=== PATIENT | female | born 1960 | race Caucasian/White ===

== ENCOUNTER 2020-10-25 21:45 | Inpatient (IN) ==
[2020-10-25] MEDS ORDERED: SODIUM CHLORIDE 0.9% 1,000 ML IV STA (22:46)
[2020-10-25] MEDS ORDERED: LABETALOL 20 MG/4 ML SYRINGE IV STA ×3 (22:48→23:43)
[2020-10-25] MEDS ORDERED: PROMETHAZINE 25 MG/1 ML VIAL IM STA (23:15)
[2020-10-25] MEDS ORDERED: ONDANSETRON 4 MG/2 ML VIAL IV ONE (23:17)
[2020-10-25 23:22] LABS: Basophils # 0.1 10*3/uL (0.0-0.2); Basophils % 0.5 % (0.0-0.8); Eosinophils % 0.1 % (0.00-10.9); Hematocrit 43.3 VOL% (35.7-47.0); Hemoglobin 14.9 GM/DL (12.0-16.0); Immature Granulocytes % 0.4 %; Immature Granulocytes Absolute 0.04 #; Lymphocytes # 1.4 10*3/uL (1.4-4.0); Lymphocytes % 12.8 % (21.3-54.2); Mean Corpuscular HGB Conc 34.4 GM/DL (32-36); Mean Corpuscular Volume 91.4 FL (87-102); Mean Platelet Volume 10.2 FL (9.6-12.0); Monocytes % 5.5 % (1.7-12.7); Neutrophils % 80.7 % (38.7-73.9); Platelet Count 310 T/CUMM (130-400); Red Blood Count 4.74 MC/CUMM (3.8-5.5); Red Cell Distribution Width 11.4 % (9.3-17.3); White Blood Count 11.2 T/CUMM (4-12)
[2020-10-25 23:42] LABS: Albumin 3.8 G/DL (3.4-5.0); Bilirubin,Total 0.6 MG/DL (0.2-1.0); Osmolality,Calculated 276.8 MOS/KG (273-304); Potassium 3.9 MMOL/L (3.5-5.1); Total Protein 8.1 G/DL (6.4-8.3)
[2020-10-26] MEDS ORDERED: LORazepam 2 MG/1 ML VIAL IV STA (00:28)
[2020-10-26] MEDS ORDERED: ONDANSETRON 4 MG/2 ML VIAL IV STA (01:04)
[2020-10-26] MEDS ORDERED: hydrALAZINE 20 MG/1 ML VIAL IV STA (01:06)
[2020-10-26] MEDS ORDERED: [UNRECOGNIZED DRUG - OTHER] IV SCH (03:30)
[2020-10-26] MEDS ORDERED: ATROPINE IV SCH (03:30)
[2020-10-26] MEDS ORDERED: PROMETHAZINE IV SCH (03:30)
[2020-10-26] MEDS ORDERED: DIPHENHYDRAMINE IV SCH (03:30)
[2020-10-26] MEDS ORDERED: hydrALAZINE 20 MG/1 ML VIAL IV PRN (04:15)
[2020-10-26] MEDS ORDERED: DOCUSATE SODIUM 100 MG CAPSULE PO PRN (04:15)
[2020-10-26] MEDS ORDERED: DEXTROSE 50% 25 GM/50 ML VIAL IV PRN (04:15)
[2020-10-26] MEDS ORDERED: GLUCAGON 1 MG VIAL IM PRN (04:15)
[2020-10-26] MEDS ORDERED: ACETAMINOPHEN 325 MG TABLET PO PRN (04:15)
[2020-10-26] MEDS ORDERED: PANTOPRAZOLE 40 MG VIAL IV ONE (04:53)
[2020-10-26 05:53] LABS: Bacteria,Urine Occasional /HPF (Few); Bilirubin,Urine Negative (Negative); Blood, Urine Negative (Negative); Glucose,Urine (UA) Negative (Negative); Ketones,Urine Negative (Negative); Mucus,Urine Occasional /LPF (Occasional); Nitrite,Urine Negative (Negative); Protein,Urine 100 MG/DL; RBC,Urine 5 /HPF (0-4); Squamous Epithelial Cell,Urine Occasional /HPF (0-10); Urine Appearance CLEAR (Clear); Urine Color Yellow (Yellow); Urine Urobilinogen < 2.0 EU/DL (0.2-1.0); WBC,Urine 1 /HPF (0-6)
[2020-10-26] MEDS: SODIUM CHLORIDE 0.9% 1,000 ML IV SCH ×3 (05:58→15:12)
[2020-10-26 07:26] LABS: Basophils % 0.4 % (0.0-0.8); Eosinophils % 0.1 % (0.00-10.9); Hematocrit 35.9 VOL% (35.7-47.0); Hemoglobin 12.3 GM/DL (12.0-16.0); Immature Granulocytes % 0.3 %; Immature Granulocytes Absolute 0.03 #; Lymphocytes # 2.6 10*3/uL (1.4-4.0); Mean Corpuscular HGB Conc 34.3 GM/DL (32-36); Mean Corpuscular Volume 92.3 FL (87-102); Mean Platelet Volume 10.6 FL (9.6-12.0); Monocytes % 9.1 % (1.7-12.7); Neutrophils % 66.1 % (38.7-73.9); Platelet Count 263 T/CUMM (130-400); Red Blood Count 3.89 MC/CUMM (3.8-5.5); Red Cell Distribution Width 11.7 % (9.3-17.3); White Blood Count 10.6 T/CUMM (4-12)
[2020-10-26 07:52] LABS: Bilirubin,Total 0.5 MG/DL (0.2-1.0); Osmolality,Calculated 273.7 MOS/KG (273-304); Potassium 3.5 MMOL/L (3.5-5.1); Total Protein 6.3 G/DL (6.4-8.3)
[2020-10-26] MEDS: PROMETHAZINE INJ 25 MG in SODIUM CHLORIDE 0.9% 50 ML IV PRN ×2 (08:38→18:31)
[2020-10-26] MEDS: ONDANSETRON 4 MG/2 ML VIAL IV PRN (10:44)
[2020-10-26] MEDS: LISINOPRIL/HCTZ 20-25 MG TABLET PO SCH (12:39)
[2020-10-26] MEDS: METOPROLOL SUCCINATE XL 100 MG TABLET PO SCH (12:39)
[2020-10-26] MEDS: LACTOBACILLUS ACIDOPHILUS/BULGARICUS CAPLET PO SCH (12:39)
[2020-10-26] MEDS: ERYTHROMYCIN BASE 250 MG TABLET PO SCH ×2 (12:55→20:35)
[2020-10-26] MEDS ORDERED: ZALEPLON 5 MG CAPSULE PO PRN ×2 (20:31→21:13)
[2020-10-26] MEDS: QUEtiapine 100 MG TABLET PO SCH (21:50)
[2020-10-26] MEDS: PANTOPRAZOLE 40 MG VIAL IV SCH (21:51)
[2020-10-26] MEDS: ZOLPIDEM 5 MG TABLET PO PRN (21:51)
[2020-10-27] MEDS: SODIUM CHLORIDE 0.9% 1,000 ML IV SCH ×5 (00:02→21:36)
[2020-10-27] MEDS: PROMETHAZINE INJ 25 MG in SODIUM CHLORIDE 0.9% 50 ML IV PRN ×3 (03:00→16:25)
[2020-10-27] MEDS: ERYTHROMYCIN BASE 250 MG TABLET PO SCH ×2 (04:23→11:43)
[2020-10-27 06:43] LABS: Basophils # 0.1 10*3/uL (0.0-0.2); Basophils % 0.8 % (0.0-0.8); Eosinophils # 0.2 10*3/uL (0.0-0.87); Hematocrit 33.1 VOL% (35.7-47.0); Hemoglobin 11.3 GM/DL (12.0-16.0); Immature Granulocytes % 0.3 %; Immature Granulocytes Absolute 0.02 #; Lymphocytes # 2.9 10*3/uL (1.4-4.0); Lymphocytes % 44.4 % (21.3-54.2); Mean Corpuscular HGB Conc 34.1 GM/DL (32-36); Mean Corpuscular Volume 94.8 FL (87-102); Mean Platelet Volume 10.4 FL (9.6-12.0); Monocytes % 10.7 % (1.7-12.7); Neutrophils % 40.8 % (38.7-73.9); Platelet Count 178 T/CUMM (130-400); Red Blood Count 3.49 MC/CUMM (3.8-5.5); Red Cell Distribution Width 11.9 % (9.3-17.3); White Blood Count 6.6 T/CUMM (4-12)
[2020-10-27 07:27] LABS: Albumin 2.7 G/DL (3.4-5.0); Bilirubin,Total 0.5 MG/DL (0.2-1.0); Calcium 7.8 MG/DL (8.5-10.1); Osmolality,Calculated 273.5 MOS/KG (273-304); Potassium 3.3 MMOL/L (3.5-5.1); Total Protein 5.5 G/DL (6.4-8.3)
[2020-10-27] MEDS: ONDANSETRON 4 MG/2 ML VIAL IV PRN (08:30)
[2020-10-27] MEDS: PANTOPRAZOLE 40 MG VIAL IV SCH ×2 (09:22→21:35)
[2020-10-27] MEDS: LACTOBACILLUS ACIDOPHILUS/BULGARICUS CAPLET PO SCH (11:42)
[2020-10-27] MEDS: METOPROLOL SUCCINATE XL 100 MG TABLET PO SCH (12:34)
[2020-10-27] MEDS: LISINOPRIL/HCTZ 20-25 MG TABLET PO SCH (12:34)
[2020-10-27] MEDS: QUEtiapine 100 MG TABLET PO SCH (21:32)
[2020-10-27] MEDS: ZOLPIDEM 5 MG TABLET PO PRN (21:32)
[2020-10-28] MEDS: PROMETHAZINE INJ 25 MG in SODIUM CHLORIDE 0.9% 50 ML IV PRN (04:29)
[2020-10-28 04:58] LABS: Basophils # 0.1 10*3/uL (0.0-0.2); Eosinophils # 0.4 10*3/uL (0.0-0.87); Hematocrit 35.7 VOL% (35.7-47.0); Immature Granulocytes % 0.3 %; Immature Granulocytes Absolute 0.02 #; Lymphocytes % 37.6 % (21.3-54.2); Mean Corpuscular HGB Conc 33.6 GM/DL (32-36); Mean Corpuscular Volume 94.4 FL (87-102); Monocytes % 12.4 % (1.7-12.7); Neutrophils % 43.7 % (38.7-73.9); Platelet Count 214 T/CUMM (130-400); Red Blood Count 3.78 MC/CUMM (3.8-5.5); Red Cell Distribution Width 11.7 % (9.3-17.3); White Blood Count 7.8 T/CUMM (4-12)
[2020-10-28 05:18] LABS: Calcium 8.3 MG/DL (8.5-10.1); Osmolality,Calculated 278.5 MOS/KG (273-304); Potassium 3.3 MMOL/L (3.5-5.1)
[2020-10-28] MEDS: SODIUM CHLORIDE 0.9% 1,000 ML IV SCH ×2 (05:36→23:15)
[2020-10-28] MEDS: LACTOBACILLUS ACIDOPHILUS/BULGARICUS CAPLET PO SCH (09:19)
[2020-10-28] MEDS: PANTOPRAZOLE 40 MG VIAL IV SCH ×2 (09:19→22:03)
[2020-10-28] MEDS: METOPROLOL SUCCINATE XL 100 MG TABLET PO SCH (09:19)
[2020-10-28] MEDS: LISINOPRIL/HCTZ 20-25 MG TABLET PO SCH (09:19)
[2020-10-28] MEDS ORDERED: LORazepam 2 MG/1 ML VIAL IV ONE (10:10)
[2020-10-28] MEDS ORDERED: POTASSIUM CHLORIDE 20 MEQ TABLET PO ONE (11:39)
[2020-10-28] MEDS: LACTATED RINGERS 1,000 ML IV SCH (12:13)
[2020-10-28] MEDS ORDERED: propofoL 200 MG/20 ML VIAL IV ONE (12:58)
[2020-10-28] MEDS ORDERED: ONDANSETRON 4 MG/2 ML VIAL ONE (12:58)
[2020-10-28] MEDS ORDERED: LIDOCAINE 2% 5 ML VIAL ONE (12:58)
[2020-10-28] MEDS ORDERED: POLYETHYLENE GLYCOL POWDER 255 GM BOTTLE PO ONE (18:00)
[2020-10-28] MEDS: QUEtiapine 100 MG TABLET PO SCH (22:03)
[2020-10-28] MEDS: ZOLPIDEM 5 MG TABLET PO PRN (22:22)
[2020-10-29] MEDS ORDERED: MAGNESIUM CITRATE 300 ML BOTTLE PO ONE (06:00)
[2020-10-29] MEDS: SODIUM CHLORIDE 0.9% 1,000 ML IV SCH ×4 (07:28→20:41)
[2020-10-29 07:57] LABS: Basophils # 0.1 10*3/uL (0.0-0.2); Basophils % 0.8 % (0.0-0.8); Eosinophils # 0.4 10*3/uL (0.0-0.87); Eosinophils % 6.2 % (0.00-10.9); Hematocrit 36.9 VOL% (35.7-47.0); Hemoglobin 12.4 GM/DL (12.0-16.0); Immature Granulocytes % 0.3 %; Immature Granulocytes Absolute 0.02 #; Lymphocytes # 2.2 10*3/uL (1.4-4.0); Lymphocytes % 33.7 % (21.3-54.2); Mean Corpuscular HGB Conc 33.6 GM/DL (32-36); Mean Corpuscular Volume 92.3 FL (87-102); Mean Platelet Volume 10.2 FL (9.6-12.0); Monocytes % 12.8 % (1.7-12.7); Neutrophils % 46.2 % (38.7-73.9); Platelet Count 239 T/CUMM (130-400); Red Cell Distribution Width 11.6 % (9.3-17.3); White Blood Count 6.4 T/CUMM (4-12)
[2020-10-29 08:09] LABS: Calcium 8.6 MG/DL (8.5-10.1); Osmolality,Calculated 275.4 MOS/KG (273-304); Potassium 3.2 MMOL/L (3.5-5.1)
[2020-10-29] MEDS ORDERED: POTASSIUM CHLORIDE RIDER 20 MEQ in PREMIX 1 EACH IV PRN (10:49)
[2020-10-29] MEDS ORDERED: POTASSIUM CHLORIDE RIDER 10 MEQ in PREMIX 1 EACH IV PRN (10:49)
[2020-10-29] MEDS: POTASSIUM CHLORIDE 20 MEQ TABLET PO PRN ×2 (11:05→11:06)
[2020-10-29] MEDS: LACTATED RINGERS 1,000 ML IV SCH (12:42)
[2020-10-29] MEDS ORDERED: propofoL 200 MG/20 ML VIAL IV ONE (14:02)
[2020-10-29] MEDS: LACTOBACILLUS ACIDOPHILUS/BULGARICUS CAPLET PO SCH (16:39)
[2020-10-29] MEDS: LISINOPRIL/HCTZ 20-25 MG TABLET PO SCH (16:39)
[2020-10-29] MEDS: METOPROLOL SUCCINATE XL 100 MG TABLET PO SCH (16:40)
[2020-10-29] MEDS: PANTOPRAZOLE 40 MG VIAL IV SCH ×2 (16:40→20:40)
[2020-10-29] MEDS: PROMETHAZINE INJ 25 MG in SODIUM CHLORIDE 0.9% 50 ML IV PRN (17:41)
[2020-10-29] MEDS: QUEtiapine 100 MG TABLET PO SCH (22:46)
[2020-10-29] MEDS: ZOLPIDEM 5 MG TABLET PO PRN (22:46)
[2020-10-30] MEDS: SODIUM CHLORIDE 0.9% 1,000 ML IV SCH ×2 (04:46→20:30)
[2020-10-30] MEDS: PROMETHAZINE INJ 25 MG in SODIUM CHLORIDE 0.9% 50 ML IV PRN (04:47)
[2020-10-30] MEDS: LACTATED RINGERS 1,000 ML IV SCH (08:31)
[2020-10-30] MEDS: METOPROLOL SUCCINATE XL 100 MG TABLET PO SCH (08:34)
[2020-10-30] MEDS: LACTOBACILLUS ACIDOPHILUS/BULGARICUS CAPLET PO SCH (08:34)
[2020-10-30] MEDS: POTASSIUM CHLORIDE 20 MEQ TABLET PO PRN ×4 (08:34→12:48)
[2020-10-30] MEDS: LISINOPRIL/HCTZ 20-25 MG TABLET PO SCH (08:38)
[2020-10-30] MEDS: PANTOPRAZOLE 40 MG VIAL IV SCH ×2 (08:38→20:30)
[2020-10-30] MEDS ORDERED: ENOXAPARIN 40 MG/0.4 ML SYRINGE SUBCUT SCH (21:00)
[2020-10-30] MEDS: QUEtiapine 100 MG TABLET PO SCH (21:56)
[2020-10-30] MEDS: ZOLPIDEM 5 MG TABLET PO PRN (21:57)
[2020-10-31] MEDS: SODIUM CHLORIDE 0.9% 1,000 ML IV SCH (04:57)
[2020-10-31] MEDS: LACTATED RINGERS 1,000 ML IV SCH (06:36)
[2020-10-31] MEDS: LACTOBACILLUS ACIDOPHILUS/BULGARICUS CAPLET PO SCH (08:48)
[2020-10-31] MEDS: POTASSIUM CHLORIDE 20 MEQ TABLET PO PRN (08:49)
[2020-10-31] MEDS: METOPROLOL SUCCINATE XL 100 MG TABLET PO SCH (08:49)
[2020-10-31] MEDS: LISINOPRIL/HCTZ 20-25 MG TABLET PO SCH (08:49)
[2020-10-31] MEDS: PANTOPRAZOLE 40 MG VIAL IV SCH (08:50)
[2020-10-31 11:45] VITALS: BP 133/68
== END 2020-10-31 13:16 | disposition home or self-care (01) | DRG 395 ==
LOC: N.EDINP 21:45 → N.ED 21:45 → N.EDINP 10-26 05:41 → N.4E 10-26 05:50
PROVIDERS: ADMIT Internal Medicine; ATTEND Internal Medicine
PROC: COLONBX (2020-10-29 12:05)

== ENCOUNTER 2022-02-28 22:49 | Inpatient (IN) ==
[2022-03-01] MEDS ORDERED: SODIUM CHLORIDE 0.9% 1,000 ML IV STA (01:14)
[2022-03-01] MEDS ORDERED: LABETALOL 20 MG/4 ML SYRINGE IV STA ×2 (01:14→04:11)
[2022-03-01] MEDS ORDERED: PROCHLORPERAZINE 10 MG/2 ML VIAL IV ONE (01:15)
[2022-03-01 02:19] LABS: Basophils % 0.2 % (0.0-0.8); Hematocrit 44.3 VOL% (35.7-47.0); Hemoglobin 15.7 GM/DL (12.0-16.0); Immature Granulocytes % 0.3 %; Immature Granulocytes Absolute 0.02 #; Lymphocytes # 0.7 10*3/uL (1.4-4.0); Lymphocytes % 10.6 % (21.3-54.2); Mean Corpuscular HGB Conc 35.4 GM/DL (32-36); Mean Corpuscular Volume 89.5 FL (87-102); Mean Platelet Volume 10.3 FL (9.6-12.0); Monocytes # 0.6 10*3/uL (0.11-0.8); Monocytes % 9.2 % (1.7-12.7); Neutrophils % 79.7 % (38.7-73.9); Platelet Count 268 T/CUMM (130-400); Red Blood Count 4.95 MC/CUMM (3.8-5.5); Red Cell Distribution Width 11.9 % (9.3-17.3); White Blood Count 6.3 T/CUMM (4-12)
[2022-03-01 02:32] LABS: Mucus,Urine Moderate /LPF (Occasional); Squamous Epithelial Cell,Urine Occasional /HPF (0-10)
[2022-03-01 02:34] LABS: Bilirubin,Urine Small mg/dL (Negative); Blood, Urine Trace mg/dL (Negative); Glucose,Urine (UA) Negative (Negative); Ketones,Urine >=160 mg/dL (Negative); Nitrite,Urine Negative (Negative); Protein,Urine 100 mg/dL (Negative); Urine Appearance Clear (Clear); Urine Color Yellow (Yellow); Urine Specific Gravity >= 1.030 (1.001-1.035); Urine Urobilinogen 0.2 eU/dL (<2.0); Urine pH 5.5 (4.5-8.0)
[2022-03-01 02:38] LABS: Bilirubin,Total 0.6 MG/DL (0.20-1.00); Calcium 9.6 MG/DL (8.5-10.1); Potassium 3.6 MMOL/L (3.5-5.1); Total Protein 7.7 G/DL (6.4-8.2)
[2022-03-01] MEDS ORDERED: hydrALAZINE 20 MG/1 ML VIAL IV STA (03:31)
[2022-03-01] MEDS ORDERED: PROMETHAZINE 25 MG/1 ML VIAL IM STA (03:32)
[2022-03-01] MEDS ORDERED: ONDANSETRON 4 MG/2 ML VIAL IV STA (04:12)
[2022-03-01] MEDS ORDERED: ACETAMINOPHEN 325 MG TABLET PO PRN (04:28)
[2022-03-01] MEDS: SODIUM CHLORIDE 0.9% 1,000 ML IV SCH ×3 (05:15→21:02)
[2022-03-01] MEDS: hydrALAZINE 20 MG/1 ML VIAL IV PRN ×2 (07:21→17:00)
[2022-03-01] MEDS: PROCHLORPERAZINE 10 MG/2 ML VIAL IV PRN ×3 (08:05→21:02)
[2022-03-01] MEDS ORDERED: REMDESIVIR 200 MG in SODIUM CHLORIDE 0.9% 210 ML IV ONE (09:00)
[2022-03-01] MEDS: PANTOPRAZOLE 40 MG VIAL IV SCH ×2 (09:36→21:02)
[2022-03-01] MEDS: ENOXAPARIN 40 MG/0.4 ML SYRINGE SUBCUT SCH (09:36)
[2022-03-01] MEDS: ASCORBIC ACID 500 MG TABLET PO SCH ×2 (09:37→21:02)
[2022-03-01] MEDS: ZINC GLUCONATE 50 MG TABLET PO SCH (09:37)
[2022-03-01] MEDS: CHOLECALCIFEROL 1,000 UNIT TABLET PO SCH (09:37)
[2022-03-01 10:01] LABS: Albumin 3.5 G/DL (3.4-5.0); Bilirubin,Total 0.4 MG/DL (0.20-1.00); Osmolality,Calculated 277.8 MOS/KG (273-304); Potassium 3.3 MMOL/L (3.5-5.1); Total Protein 7.3 G/DL (6.4-8.2)
[2022-03-01] MEDS: PROMETHAZINE 25 MG/1 ML VIAL IM PRN (18:43)
[2022-03-02] MEDS ORDERED: DEXT 5% NACL 0.45% KCL 20 MEQ 20 MEQ/1,000 ML BAG IV SCH (08:30)
[2022-03-02] MEDS: PANTOPRAZOLE 40 MG VIAL IV SCH ×2 (09:39→21:48)
[2022-03-02] MEDS: ENOXAPARIN 40 MG/0.4 ML SYRINGE SUBCUT SCH (09:39)
[2022-03-02] MEDS: ONDANSETRON 4 MG/2 ML VIAL IV PRN (09:43)
[2022-03-02] MEDS: ZINC GLUCONATE 50 MG TABLET PO SCH (09:43)
[2022-03-02] MEDS: ASCORBIC ACID 500 MG TABLET PO SCH ×2 (09:43→21:48)
[2022-03-02] MEDS: CHOLECALCIFEROL 1,000 UNIT TABLET PO SCH (09:43)
[2022-03-02] MEDS: REMDESIVIR 100 MG in SODIUM CHLORIDE 0.9% 100 ML IV SCH (09:45)
[2022-03-02] MEDS: PROCHLORPERAZINE 10 MG/2 ML VIAL IV PRN ×2 (12:33→21:48)
[2022-03-02] MEDS ORDERED: POTASSIUM CHLORIDE 20 MEQ TABLET PO ONE (13:00)
[2022-03-03] MEDS: CHOLECALCIFEROL 1,000 UNIT TABLET PO SCH (09:28)
[2022-03-03] MEDS: PANTOPRAZOLE 40 MG TABLET PO SCH ×2 (09:28→20:44)
[2022-03-03] MEDS: ENOXAPARIN 40 MG/0.4 ML SYRINGE SUBCUT SCH (09:29)
[2022-03-03] MEDS: ASCORBIC ACID 500 MG TABLET PO SCH ×2 (09:29→20:44)
[2022-03-03] MEDS: ZINC GLUCONATE 50 MG TABLET PO SCH (09:29)
[2022-03-03] MEDS: ONDANSETRON 4 MG/2 ML VIAL IV PRN ×2 (10:05→20:50)
[2022-03-03] MEDS: REMDESIVIR 100 MG in SODIUM CHLORIDE 0.9% 100 ML IV SCH (11:01)
[2022-03-03] MEDS ORDERED: AZITHROMYCIN INJ 500 MG in SODIUM CHLORIDE 0.9% 250 ML IV ONE (11:27)
[2022-03-03] MEDS: PROMETHAZINE 25 MG/1 ML VIAL IM PRN (11:57)
[2022-03-03] MEDS: PROCHLORPERAZINE 10 MG/2 ML VIAL IV PRN (16:55)
[2022-03-04] MEDS: PROMETHAZINE 25 MG/1 ML VIAL IM PRN ×2 (00:42→10:53)
[2022-03-04] MEDS: hydrALAZINE 20 MG/1 ML VIAL IV PRN ×4 (00:43→21:35)
[2022-03-04] MEDS: ONDANSETRON 4 MG/2 ML VIAL IV PRN ×3 (02:50→18:27)
[2022-03-04 05:50] LABS: Basophils % 0.5 % (0.0-0.8); Eosinophils % 0.1 % (0.00-10.9); Hematocrit 39.7 VOL% (35.7-47.0); Hemoglobin 13.9 GM/DL (12.0-16.0); Immature Granulocytes % 1.3 %; Immature Granulocytes Absolute 0.11 #; Lymphocytes # 0.9 10*3/uL (1.4-4.0); Lymphocytes % 10.6 % (21.3-54.2); Mean Corpuscular Volume 91.7 FL (87-102); Mean Platelet Volume 11.3 FL (9.6-12.0); Monocytes # 0.6 10*3/uL (0.11-0.8); Monocytes % 7.7 % (1.7-12.7); Neutrophils % 79.8 % (38.7-73.9); Platelet Count 170 T/CUMM (130-400); Red Blood Count 4.33 MC/CUMM (3.8-5.5); Red Cell Distribution Width 11.6 % (9.3-17.3); White Blood Count 8.4 T/CUMM (4-12)
[2022-03-04 06:12] LABS: Albumin 3.3 G/DL (3.4-5.0); Bilirubin,Total 0.6 MG/DL (0.20-1.00); Calcium 8.8 MG/DL (8.5-10.1); Osmolality,Calculated 272.1 MOS/KG (273-304); Potassium 3.5 MMOL/L (3.5-5.1); Total Protein 6.7 G/DL (6.4-8.2)
[2022-03-04] MEDS: ENOXAPARIN 40 MG/0.4 ML SYRINGE SUBCUT SCH (08:20)
[2022-03-04] MEDS: REMDESIVIR 100 MG in SODIUM CHLORIDE 0.9% 100 ML IV SCH (13:22)
[2022-03-04] MEDS: METOPROLOL SUCCINATE XL 100 MG TABLET PO SCH (13:23)
[2022-03-04] MEDS: amLODIPine 10 MG TABLET PO SCH (13:23)
[2022-03-04] MEDS: ASCORBIC ACID 500 MG TABLET PO SCH ×2 (13:23→21:40)
[2022-03-04] MEDS: lisinopriL 20 MG TABLET PO SCH (13:23)
[2022-03-04] MEDS: ZINC GLUCONATE 50 MG TABLET PO SCH (13:23)
[2022-03-04] MEDS: PANTOPRAZOLE 40 MG TABLET PO SCH ×2 (13:23→21:40)
[2022-03-04] MEDS: CHOLECALCIFEROL 1,000 UNIT TABLET PO SCH (13:23)
[2022-03-04] MEDS: PROCHLORPERAZINE 10 MG/2 ML VIAL IV PRN ×2 (14:35→21:48)
[2022-03-04] MEDS: AZITHROMYCIN INJ 250 MG in SODIUM CHLORIDE 0.9% 250 ML IV SCH (14:37)
[2022-03-04] MEDS: cefTRIAXone 2,000 MG in SODIUM CHLORIDE 0.9% 100 ML IV SCH (15:44)
[2022-03-05 05:25] LABS: Basophils % 0.4 % (0.0-0.8); Eosinophils % 0.2 % (0.00-10.9); Hematocrit 40.6 VOL% (35.7-47.0); Hemoglobin 14.1 GM/DL (12.0-16.0); Immature Granulocytes % 0.8 %; Immature Granulocytes Absolute 0.08 #; Lymphocytes # 1.9 10*3/uL (1.4-4.0); Mean Corpuscular HGB Conc 34.7 GM/DL (32-36); Mean Corpuscular Volume 92.1 FL (87-102); Mean Platelet Volume 10.5 FL (9.6-12.0); Monocytes # 1.4 10*3/uL (0.11-0.8); Neutrophils % 67.6 % (38.7-73.9); Platelet Count 222 T/CUMM (130-400); Red Blood Count 4.41 MC/CUMM (3.8-5.5); Red Cell Distribution Width 11.5 % (9.3-17.3); White Blood Count 10.5 T/CUMM (4-12)
[2022-03-05 05:43] LABS: Bilirubin,Total 0.5 MG/DL (0.20-1.00); Calcium 9.1 MG/DL (8.5-10.1); Potassium 3.9 MMOL/L (3.5-5.1); Total Protein 6.6 G/DL (6.4-8.2)
[2022-03-05] MEDS: PROMETHAZINE 25 MG/1 ML VIAL IM PRN (08:10)
[2022-03-05] MEDS: PROCHLORPERAZINE 10 MG/2 ML VIAL IV PRN (09:23)
[2022-03-05] MEDS: METOPROLOL SUCCINATE XL 100 MG TABLET PO SCH ×3 (10:18→16:40)
[2022-03-05] MEDS: CHOLECALCIFEROL 1,000 UNIT TABLET PO SCH ×2 (10:18→10:23)
[2022-03-05] MEDS: ENOXAPARIN 40 MG/0.4 ML SYRINGE SUBCUT SCH (10:18)
[2022-03-05] MEDS: amLODIPine 10 MG TABLET PO SCH ×3 (10:18→16:40)
[2022-03-05] MEDS: ASCORBIC ACID 500 MG TABLET PO SCH ×3 (10:19→20:33)
[2022-03-05] MEDS: ZINC GLUCONATE 50 MG TABLET PO SCH ×2 (10:19→10:23)
[2022-03-05] MEDS: PANTOPRAZOLE 40 MG TABLET PO SCH ×3 (10:19→20:19)
[2022-03-05] MEDS: lisinopriL 20 MG TABLET PO SCH ×3 (10:19→16:40)
[2022-03-05] MEDS: REMDESIVIR 100 MG in SODIUM CHLORIDE 0.9% 100 ML IV SCH (10:27)
[2022-03-05] MEDS: hydrALAZINE 20 MG/1 ML VIAL IV PRN (10:33)
[2022-03-05] MEDS: AZITHROMYCIN INJ 250 MG in SODIUM CHLORIDE 0.9% 250 ML IV SCH (11:44)
[2022-03-05] MEDS: cefTRIAXone 2,000 MG in SODIUM CHLORIDE 0.9% 100 ML IV SCH (12:57)
[2022-03-05] MEDS: SODIUM CHLORIDE 0.9% 1,000 ML IV SCH (12:57)
[2022-03-05] MEDS: PROCHLORPERAZINE 10 MG/2 ML VIAL IV SCH ×2 (15:44→20:20)
[2022-03-06] MEDS: PROCHLORPERAZINE 10 MG/2 ML VIAL IV SCH ×2 (03:24→09:12)
[2022-03-06] MEDS: SODIUM CHLORIDE 0.9% 1,000 ML IV SCH (03:25)
[2022-03-06 05:47] LABS: Basophils % 0.4 % (0.0-0.8); Eosinophils # 0.1 10*3/uL (0.0-0.87); Eosinophils % 0.9 % (0.00-10.9); Hematocrit 40.3 VOL% (35.7-47.0); Hemoglobin 14.1 GM/DL (12.0-16.0); Immature Granulocytes % 0.7 %; Immature Granulocytes Absolute 0.07 #; Lymphocytes # 2.4 10*3/uL (1.4-4.0); Lymphocytes % 23.7 % (21.3-54.2); Mean Platelet Volume 10.4 FL (9.6-12.0); Monocytes # 1.3 10*3/uL (0.11-0.8); Monocytes % 13.1 % (1.7-12.7); Neutrophils % 61.2 % (38.7-73.9); Platelet Count 233 T/CUMM (130-400); Red Blood Count 4.43 MC/CUMM (3.8-5.5); Red Cell Distribution Width 11.4 % (9.3-17.3); White Blood Count 10.1 T/CUMM (4-12)
[2022-03-06 06:08] LABS: Albumin 3.1 G/DL (3.4-5.0); Bilirubin,Total 0.6 MG/DL (0.20-1.00); Potassium 3.7 MMOL/L (3.5-5.1); Total Protein 6.7 G/DL (6.4-8.2)
[2022-03-06 08:12] VITALS: BP 147/81
[2022-03-06] MEDS: METOPROLOL SUCCINATE XL 100 MG TABLET PO SCH (09:07)
[2022-03-06] MEDS: PANTOPRAZOLE 40 MG TABLET PO SCH (09:07)
[2022-03-06] MEDS: ENOXAPARIN 40 MG/0.4 ML SYRINGE SUBCUT SCH (09:07)
[2022-03-06] MEDS: lisinopriL 20 MG TABLET PO SCH (09:07)
[2022-03-06] MEDS: amLODIPine 10 MG TABLET PO SCH (09:07)
[2022-03-06] MEDS: ASCORBIC ACID 500 MG TABLET PO SCH (10:24)
[2022-03-06] MEDS: CHOLECALCIFEROL 1,000 UNIT TABLET PO SCH (10:24)
[2022-03-06] MEDS: ZINC GLUCONATE 50 MG TABLET PO SCH (10:29)
[2022-03-06] MEDS: AZITHROMYCIN INJ 250 MG in SODIUM CHLORIDE 0.9% 250 ML IV SCH (10:30)
[2022-03-06] MEDS: cefTRIAXone 2,000 MG in SODIUM CHLORIDE 0.9% 100 ML IV SCH (10:30)
== END 2022-03-06 12:00 | disposition home or self-care (01) | DRG 177 ==
LOC: N.ED 22:49 → SUATTDRO 03-01 04:28 → N.EDINP 03-01 04:28 → N.5E 03-01 17:23
PROVIDERS: ADMIT Family Medicine; ATTEND Emergency Medicine